=== PATIENT | female | born 1930 | race Caucasian/White ===

== ENCOUNTER 2017-08-25 09:08 | Emergency (ER) | payer MEDICARE ==
[2017-08-25] MEDS ORDERED: TRAMADOL HCL 50 MG TABLET PO ONE (09:17)
[2017-08-25] MEDS ORDERED: METOPROLOL SUCCINATE 25 MG TAB.SR.24H PO ONE (09:17)
[2017-08-25 09:47] LABS: PROTHROMBIN TIME 25.6 SEC (11.4-15.4)
[2017-08-25 09:55] LABS: ALANINE AMINOTRANSFERASE 30 U/L (9-52); ALBUMIN 4.2 g/dL (3.5-5.0); ALKALINE PHOSPHATASE 191 U/L (38-126); ANION GAP 13 (5-19); ASPARTATE AMINO TRANSFERASE 22 U/L (14-36); BILIRUBIN,DIRECT 0.5 mg/dL (0.0-0.4); BILIRUBIN,TOTAL 1.2 mg/dL (0.2-1.3); BLOOD UREA NITROGEN 21 mg/dL (7-20); CALCIUM 9.7 mg/dL (8.4-10.2); CARBON DIOXIDE 23 mmol/L (22-30); CHLORIDE 112 mmol/L (98-107); CREATININE RESULT 0.91 mg/dL (0.52-1.25); GLUCOSE 128 mg/dL (75-110); POTASSIUM 4.3 mmol/L (3.6-5.0); SODIUM 147.6 mmol/L (137-145); TOTAL PROTEIN 7.5 g/dL (6.3-8.2)
--- NOTE | 2017-08-25 10:09 | ER Document Report ---
ED General - General Chief Complaint: Fall Stated Complaint: FALL RIGHT BUTTOCK PAIN Time Seen by Provider: 08/25/17 09:15 Mode of Arrival: Medic Information source: Patient Notes: 87 yr old female hx of afib on metoprolol and coumadin presents with complaints of right buttock pain. Pt notes she fell a month ago was fine after, notes that the last few days the pain has since worsened. Pt was taking out hte garbage and twisted and has had mild pain initially that has since worsened. - HPI Onset: Other Onset/Duration: Intermittent Quality of pain: Achy Severity: Mild Pain Level: 1 Associated symptoms: Body/muscle aches Exacerbated by: Movement Relieved by: Denies Similar symptoms previously: No Recently seen / treated by doctor: No - Related Data Allergies/Adverse Reactions: Penicillins Allergy (Verified 08/25/17 09:36) Past Medical History - Social History Smoking Status: Never Smoker Cigarette use (# per day): No Chew tobacco use (# tins/day): No Smoking Education Provided: No Frequency of alcohol use: None Drug Abuse: None Family History: Reviewed & Not Pertinent - Past Medical History Cardiac Medical History: Reports: Hx Atrial Fibrillation - possibly, on coumadin , Hx Hypertension Pulmonary Medical History: Denies: Hx COPD Past Surgical History: Reports: Hx Cardiac Catheterization - Immunizations Hx Diphtheria, Pertussis, Tetanus Vaccination: Yes Hx Pneumococcal Vaccination: 08/17/12 Review of Systems - Review of Systems Notes: REVIEW OF SYSTEMS: CONSTITUTIONAL : Denies fever, chills, or sweats. Denies recent illness. EENT: Denies eye, ear, throat, or mouth pain or symptoms. Denies nasal or sinus congestion or discharge. Denies throat, tongue, or mouth swelling or difficulty swallowing. CARDIOVASCULAR: Denies chest pain. Denies palpitations or racing or irregular heart beat. Denies ankle edema. RESPIRATORY: Denies cough, cold, or chest congestion. Denies shortness of breath, difficulty breathing, or wheezing. GASTROINTESTINAL: Denies abdominal pain or distention. Denies nausea, vomiting , or diarrhea. Denies blood in vomitus, stools, or per rectum. Denies black, tarry stools. Denies constipation. GENITOURINARY: Denies difficulty urinating, painful urination, burning, frequency, blood in urine, or discharge. FEMALE GENITOURINARY: Denies vaginal bleeding, heavy or abnormal periods, irregular periods. Denies vaginal discharge or odor. MUSCULOSKELETAL:admits to right buttocks pain SKIN: Denies rash, lesions or sores. HEMATOLOGIC : Denies easy bruising or bleeding. LYMPHATIC: Denies swollen, enlarged glands. NEUROLOGICAL: Denies confusion or altered mental status. Denies passing out or loss of consciousness. Denies dizziness or lightheadedness. Denies headache. Denies weakness or paralysis or loss of use of either side. Denies problems with gait or speech. Denies sensory loss, numbness, or tingling. Denies seizures. PSYCHIATRIC: Denies anxiety or stress. Denies depression, suicidal ideation, or homicidal ideation. ALL OTHER SYSTEMS REVIEWED AND NEGATIVE. PHYSICAL EXAMINATION: GENERAL: Well-appearing, well-nourished and in no acute distress. HEAD: Atraumatic, normocephalic. EYES: Pupils equal round and reactive to light, extraocular movements intact, conjunctiva are normal. ENT: Nares patent, oropharynx clear without exudates. Moist mucous membranes. NECK: Normal range of motion, supple without lymphadenopathy LUNGS: Breath sounds clear to auscultation bilaterally and equal. No wheezes rales or rhonchi. HEART: afib rvr ABDOMEN: Soft, nontender, nondistended abdomen. No guarding, no rebound. No masses appreciated. Female : deferred Musculoskeletal: Normal range of motion, no pitting or edema. No cyanosis. no bruise noted, no point tenderness NEUROLOGICAL: Cranial nerves grossly intact. Normal speech, normal gait. Normal sensory, motor exams PSYCH: Normal mood, normal affect. SKIN: Warm, Dry, normal turgor, no rashes or lesions noted. Dictation was performed using Cartesian voice recognition software Physical Exam - Vital signs Vitals: Resp 25 H 08/25/17 09:13 Course - Re-evaluation Re-evalutation: 08/25/17 10:08 labs pending, overall patient looks quite well, she has not taken her metoprolol today. pt given dose and inr was checked pt given pain control., has no bony tenderness or cauda equina concerns 08/25/17 15:44 Patient noted complete resolution of her pain with tramadol, she was able to ambulate and was assisted by PCT. Patient's INR was checked and was reported to her. Otherwise she has no bony tenderness none cauda equina concerns and stable for discharge After performing a Medical Screening Examination, I estimate there is LOW risk for EXPANDING OR RUPTURED ABDOMINAL AORTIC ANEURYSM, CAUDA EQUINA SYNDROME, EPIDURAL MASS LESION, or HERNIATED DISK CAUSING SEVERE SPINAL STENOSIS, thus I consider the discharge disposition reasonable. I have reevaluated this patient multiple times and no significant life threatening changes are noted. The patient and I have discussed the diagnosis and risks, and we agree with discharging home and close follow-up. We also discussed returning to the Emergency Department immediately if new or worsening symptoms occur with the understanding that symptoms and presentations can change. We have discussed the symptoms which are most concerning (e.g., saddle anesthesia, urinary or bowel incontinence or retention, changing or worsening pain) that necessitate immediate return. - Vital Signs Vital signs: Temp Pulse Resp BP Pulse Ox 98.4 F 15 149/111 H 94 08/25/17 11:27 08/25/17 11:27 08/25/17 11:27 08/25/17 11:27 - Laboratory Result Diagrams: 08/25/17 09:25 08/25/17 09:25 Laboratory results interpreted by me: 08/25/17 08/25/17 08/25/17 09:25 09:25 09:25 RBC 5.36 H RDW 15.2 H PT 25.6 H Sodium 147.6 H Chloride 112 H BUN 21 H Est GFR (Non-Af Amer) 59 L Glucose 128 H Direct Bilirubin 0.5 H Alkaline Phosphatase 191 H - EKG Interpretation by Dc EKG shows normal: QRS Complexes, ST-T Waves Rate: Tachycardia Rhythm: A.Fib Discharge - Discharge Clinical Impression: Fall Qualifiers: Encounter type: initial encounter Qualified Code(s): W19.XXXA - Unspecified fall, initial encounter Hip pain Qualifiers: Laterality: right Qualified Code(s): M25.551 - Pain in right hip Condition: Stable Disposition: HOME, SELF-CARE Instructions: Contusion ([facility]) Prescriptions: Tramadol HCl 50 mg PO Q8 #20 tablet Referrals: SHANNAN MARTINES PA-C [Primary Care Provider] - Follow up tomorrow
[2017-08-25 10:11] LABS: ABSOLUTE BASOPHILS # (AUTO) 0.1 10^3/uL (0.0-0.2); ABSOLUTE EOSINOPHILS # (AUTO) 0.2 10^3/uL (0.0-0.6); ABSOLUTE LYMPHOCYTES (AUTO) 1.1 10^3/uL (0.5-4.7); ABSOLUTE MONOCYTES (AUTO) 0.7 10^3/uL (0.1-1.4); ABSOLUTE NEUT (AUTO) 5.8 10^3/uL (1.7-8.2); BASOPHILS % (AUTO) 1.3 % (0-2); EOSINOPHILS % (AUTO) 1.9 % (0-6); HEMATOCRIT 46.1 % (36.0-47.0); HEMOGLOBIN 15.5 g/dL (12.0-15.5); HGB HCT DIFFERENCE 0.4; MEAN CORPUSCULAR HEMOGLOBIN 28.8 pg (27.0-33.4); MEAN CORPUSCULAR HGB CONC 33.5 g/dL (32.0-36.0); MEAN CORPUSCULAR VOLUME 86 fl (80-97); MONOCYTES % (AUTO) 9.2 % (3-13); RED BLOOD COUNT 5.36 10^6/uL (3.72-5.28); RED CELL DISTRIBUTION WIDTH 15.2 % (11.5-14.0); SEGMENTED NEUTROPHILS % (AUTO) 73.6 % (42-78); WHITE BLOOD COUNT 7.8 10^3/uL (4.0-10.5)
[2017-08-25 11:34] VITALS: BP 149/111
--- NOTE | 2017-08-25 14:01 | EKG REPORT ---
SEVERITY:- ABNORMAL ECG - ATRIAL FIBRILLATION, V-RATE 75-139 PROBABLE INFERIOR INFARCT, AGE INDETERMINATE ANTERIOR INFARCT, AGE INDETERMINATE : Confirmed by: Donovan Nguyen MD 25-Aug-2017 14:00:12
== END 2017-08-25 11:34 | disposition home or self-care (01) ==
LOC: ER 09:08
DX: M25.551 Pain in right hip (principal); R00.0 Tachycardia, unspecified; I10 Essential (primary) hypertension; I48.91 Unspecified atrial fibrillation; Z79.899 Other long term (current) drug therapy; Z79.01 Long term (current) use of anticoagulants
CPT/HCPCS: 93005; 99284; 36415; 85025; 85610; 80053; 93010; A9270 ×2

== ENCOUNTER 2017-09-05 12:16 | Emergency (ER) | payer MEDICARE ==
--- NOTE | 2017-09-05 12:36 | ER Document Report ---
ED Medical Screen (RME) - General Chief Complaint: Bloody Stools Stated Complaint: BLOODY STOOL Time Seen by Provider: 09/05/17 12:24 Notes: 87-year-old female reporting 1 day history of melanotic stool. Mild right lower quadrant pain. Patient is on Coumadin. Had recent fall and has been seen numerous times over the last month for back pain. Does not know if she could have possibly injured something when she fell. Denies any chest pain. No vomiting. No fever. TRAVEL OUTSIDE OF THE [place] IN LAST 30 DAYS: No - Related Data Allergies/Adverse Reactions: Penicillins Allergy (Verified 09/05/17 12:20) Past Medical History - General Information source: Patient - Social History Chew tobacco use (# tins/day): No Frequency of alcohol use: Occasional Drug Abuse: None Lives with: Alone - Past Medical History Cardiac Medical History: Reports: Hx Atrial Fibrillation - possibly, on coumadin , Hx Hypertension Pulmonary Medical History: Denies: Hx COPD Renal/ Medical History: Denies: Hx Peritoneal Dialysis Past Surgical History: Reports: Hx Cardiac Catheterization - Immunizations Hx Diphtheria, Pertussis, Tetanus Vaccination: Yes Review of Systems - Review of Systems Constitutional: No symptoms reported EENT: No symptoms reported Cardiovascular: No symptoms reported Respiratory: No symptoms reported Gastrointestinal: Black stools, Rectal bleeding Genitourinary: No symptoms reported Musculoskeletal: See HPI, Other - Has had some right hip pain but had x-rays and were read as normal Skin: No symptoms reported Hematologic/Lymphatic: Easy bleeding, Easy bruising, Other - On warfarin Neurological/Psychological: No symptoms reported Physical Exam - Vital signs Vitals: Temp Pulse Resp BP Pulse Ox 98.0 F 86 20 147/109 H 95 09/05/17 12:20 09/05/17 12:20 09/05/17 12:20 09/05/17 12:20 09/05/17 12:20 Course - Re-evaluation Re-evalutation: 09/05/17 12:35 I have greeted and performed a rapid initial assessment of this patient. A comprehensive ED assessment and evaluation of the patient, analysis of test results and completion of the medical decision making process will be conducted by additional ED providers. Initial labs have been ordered. Blood banding and type and screen ordered. Cardiac monitoring and saline lock ordered. 09/05/17 12:35 - Vital Signs Vital signs: Temp Pulse Resp BP Pulse Ox 98.0 F 86 20 147/109 H 95 09/05/17 12:20 09/05/17 12:20 09/05/17 12:20 09/05/17 12:20 09/05/17 12:20
[2017-09-05 13:21] LABS: ABSOLUTE BASOPHILS # (AUTO) 0.1 10^3/uL (0.0-0.2); ABSOLUTE EOSINOPHILS # (AUTO) 0.1 10^3/uL (0.0-0.6); ABSOLUTE LYMPHOCYTES (AUTO) 1.1 10^3/uL (0.5-4.7); ABSOLUTE MONOCYTES (AUTO) 0.7 10^3/uL (0.1-1.4); ABSOLUTE NEUT (AUTO) 6.7 10^3/uL (1.7-8.2); BASOPHILS % (AUTO) 1.1 % (0-2); EOSINOPHILS % (AUTO) 1.5 % (0-6); HEMOGLOBIN 14.3 g/dL (12.0-15.5); HGB HCT DIFFERENCE 0.9; LYMPHOCYTES % (AUTO) 12.8 % (13-45); MEAN CORPUSCULAR HEMOGLOBIN 29.4 pg (27.0-33.4); MEAN CORPUSCULAR HGB CONC 34.1 g/dL (32.0-36.0); MEAN CORPUSCULAR VOLUME 86 fl (80-97); MONOCYTES % (AUTO) 8.5 % (3-13); RED BLOOD COUNT 4.87 10^6/uL (3.72-5.28); SEGMENTED NEUTROPHILS % (AUTO) 76.1 % (42-78); WHITE BLOOD COUNT 8.8 10^3/uL (4.0-10.5)
[2017-09-05 13:28] LABS: PROTHROMBIN TIME 37.1 SEC (11.4-15.4)
[2017-09-05 13:29] LABS: PARTIAL THROMBOPLASTIN TIME 56.2 SEC (23.5-35.8)
[2017-09-05 13:42] LABS: ALANINE AMINOTRANSFERASE 36 U/L (9-52); ALBUMIN 3.7 g/dL (3.5-5.0); ALKALINE PHOSPHATASE 169 U/L (38-126); ANION GAP 12 (5-19); ASPARTATE AMINO TRANSFERASE 19 U/L (14-36); BILIRUBIN,DIRECT 0.4 mg/dL (0.0-0.4); BILIRUBIN,TOTAL 1.3 mg/dL (0.2-1.3); BLOOD UREA NITROGEN 13 mg/dL (7-20); CALCIUM 9.2 mg/dL (8.4-10.2); CARBON DIOXIDE 26 mmol/L (22-30); CHLORIDE 108 mmol/L (98-107); GLUCOSE 119 mg/dL (75-110); POTASSIUM 4.3 mmol/L (3.6-5.0); SODIUM 145.5 mmol/L (137-145); TOTAL PROTEIN 6.3 g/dL (6.3-8.2)
--- NOTE | 2017-09-05 14:05 | ER Document Report ---
ED GI Bleed / Rectal Pain - General Chief Complaint: Bloody Stools Stated Complaint: BLOODY STOOL Time Seen by Provider: 09/05/17 12:24 Notes: Patient is here to be evaluated for rectal bleeding. She says that she got up and went to the bathroom at 5:30 AM today and felt as if she had a normal bowel movement. However, about an hour and a half later, she felt the need to have another bowel movement and this time she listed what was in the bowl and it was some red along with very black, thick bowel movement. She had another, third black thick bowel movement and then a fourth bowel movement about 11 AM before coming to the emergency department. She denies any abdominal pains. Patient has a history of atrial fibrillation and is currently on Coumadin. Does not take aspirin. Has taken some Tylenol for pains over the past couple of weeks. Patient denies any vomiting or diarrhea. Denies any history of gastrointestinal bleeding or disease. Denies any UTI or URI symptoms. Has not had any fever. Denies any abdominal surgeries. She fell over a dog a couple of months ago and has had some residual bilateral flank pain, and that is unchanged, but she has not had any new or different abdominal pains. Says she was seen here about a week and a half ago because she had pain in her foot and was told "nothing broken" and sent home with Golden. She subsequently followed up her primary care in [place] a week or more ago who gave her a pill to take for 5 days and stop it. She does not recall the name of that medicine. TRAVEL OUTSIDE OF THE [place] IN LAST 30 DAYS: No - Related Data Allergies/Adverse Reactions: Penicillins Allergy (Verified 09/05/17 12:20) Past Medical History - General Information source: Patient - Social History Smoking Status: Never Smoker Chew tobacco use (# tins/day): No Frequency of alcohol use: Occasional Drug Abuse: None Lives with: Alone Family History: Reviewed & Not Pertinent Patient has suicidal ideation: No Patient has homicidal ideation: No - Past Medical History Cardiac Medical History: Reports: Hx Atrial Fibrillation - possibly, on coumadin , Hx Hypercholesterolemia, Hx Hypertension Neurological Medical History: Denies: Hx Cerebrovascular Accident Endocrine Medical History: Denies: Hx Diabetes Mellitus Type 2 GI Medical History: Reports: None. Denies: Hx Cirrhosis, Hx Gastritis, Hx Gastroesophageal Reflux Disease, Hx Ulcerative Colitis Past Surgical History: Reports: Hx Cardiac Catheterization - Immunizations Hx Diphtheria, Pertussis, Tetanus Vaccination: Yes Hx Pneumococcal Vaccination: 08/17/12 Review of Systems - Review of Systems Notes: REVIEW OF SYSTEMS: CONSTITUTIONAL : Denies fever. Vital signs all normal. EENT: Denies eye, ear, nose or mouth or throat pain or other symptoms. CARDIOVASCULAR: Denies chest pain. RESPIRATORY: Denies cough, chest congestion, or shortness of breath. GASTROINTESTINAL: See HPI. Denies abdominal pain or nausea, vomiting, or diarrhea. Patient does point to her flank areas bilaterally and says that she has some discomfort there that has been present for 2 months since she fell over a dog landing on her buttocks. GENITOURINARY: Denies difficulty or painful urinating, urinary frequency, blood in urine. MUSCULOSKELETAL: Denies back or neck pain. Denies joint pain or swelling. SKIN: Denies rash or skin lesions. NEUROLOGICAL: Denies LOC or altered mental status. Denies headache. Denies sensory loss or motor deficits. ALL OTHER SYSTEMS REVIEWED AND NEGATIVE. Physical Exam - Vital signs Vitals: Temp Pulse Resp BP Pulse Ox 98.0 F 86 20 147/109 H 95 09/05/17 12:20 09/05/17 12:20 09/05/17 12:20 09/05/17 12:20 09/05/17 12:20 Interpretation: Normal, Hypertensive - Mild - Notes Notes: PHYSICAL EXAMINATION: GENERAL: Well-appearing, in no acute distress. HEAD: Atraumatic, normocephalic. EYES: Pupils equal round and reactive to light, extraocular movements intact. ENT: oropharynx clear without exudates. Moist mucous membranes. NECK: Normal range of motion, supple. LUNGS: Breath sounds clear and equal bilaterally. HEART: Regular rate and rhythm without murmurs. ABDOMEN: Soft, nontender. No guarding or rebound. Rectal exam red blood on the glove along with a very small amount of melanotic appearing blood. No lesions felt. No pain present. No hemorrhoids seen. BACK: No tenderness throughout entire back. EXTREMITIES: Normal range of motion without pain. NEUROLOGICAL: Normal speech, normal gait. Normal sensory, motor, and reflex exams. Awake, alert, and oriented x3. Cranial nerves normal. PSYCH: Normal mood, normal affect. SKIN: Warm, dry, no rashes. Course - Re-evaluation Re-evalutation: 09/05/17 18:47 We do not have gastroenterology fashion design professor at this emergency department and for this hospital today. I contacted [facility] and spoke with Dr. Mark who accepted the patient on behalf of Dr. Paz. Patient will be transported to [place] for further workup and care. - Vital Signs Vital signs: Temp Pulse Resp BP Pulse Ox 98.3 F 118 H 20 144/96 H 92 09/05/17 17:49 09/05/17 17:49 09/05/17 17:49 09/05/17 17:49 09/05/17 17:49 - Laboratory Result Diagrams: 09/05/17 13:08 09/05/17 13:08 Laboratory results interpreted by me: 09/05/17 09/05/17 09/05/17 13:08 13:08 13:08 RDW 15.0 H Plt Count 148 L Lymphocytes % 12.8 L PT 37.1 H APTT 56.2 H Sodium 145.5 H Chloride 108 H Est GFR (Non-Af Amer) 59 L Glucose 119 H Alkaline Phosphatase 169 H 09/05/17 18:47 Lab studies were all essentially unremarkable except the patient's INR is 3.55. - Diagnostic Test Radiology reviewed: Image reviewed, Reports reviewed - CT scan shows a large amount of diverticulosis of the descending and sigmoid colon, but no evidence of diverticulitis. - EKG Interpretation by Me Rhythm: A.Fib - Rate 108 Additional EKG results interpreted by me: 09/05/17 18:46 EKG shows atrial fibrillation with a slight tachycardia. What might be the appearance of old infarcts of the inferior and anteroseptal leads is noted. No acute changes present. Discharge - Discharge Clinical Impression: Rectal bleeding, Atrial fibrillation Condition: Stable Disposition: [facility] Referrals: SHNANAN MARTINES PA-C [Primary Care Provider] - Follow up as needed
--- NOTE | 2017-09-05 16:43 | RADIOLOGY REPORT (SQ) ---
EXAM DESCRIPTION: CT ABD/PELVIS WITH IV ORAL COMPLETED DATE/TIME: 09/05/2017 4:23 pm REASON FOR STUDY: Rectal bleeding COMPARISON: None. TECHNIQUE: CT scan of the abdomen and pelvis performed using helical scanning technique with dynamic intravenous contrast injection. Patient drank oral contrast. Images reviewed with lung, soft tissue , and bone windows. Reconstructed coronal and sagittal MPR images reviewed. Delayed images for evalua tion of the urinary system also acquired. All images stored on PACS. All CT scanners at this facility use dose modulation, iterative reconstruction, and/or weight based d osing when appropriate to reduce radiation dose to as low as reasonably achievable (ALARA). [facility]: Dose Right [facility]: CareDose [facility]: Dose Right [facility]: Teradose 4D [facility]: AlwaySupport CONTRAST TYPE AND DOSE: contrast/concentration: Isovue 370.00 mg/ml; Total Contrast Delivered: 68.0 ml; Total Saline Delivered: 65.0 ml RENAL FUNCTION: Creatinine 0.9 RADIATION DOSE: CT Rad equipment meets quality standard of care and radiation dose reduction techniq ues were employed. CTDIvol: 6.0 - 8.4 mGy. DLP: 758 mGy-cm.. LIMITATIONS: None. FINDINGS: LOWER CHEST: Pulmonary fibrosis at both lung bases left greater than right. No dense cons olidation worrisome for pneumonia LIVER: Normal size. No masses. No dilated ducts. SPLEEN: Normal size. No focal lesions. PANCREAS: No masses. No significant calcifications. No adjacent inflammation or peripancreatic fluid collections. Pancreatic duct not dilated. GALLBLADDER: Peripheral rim calcification along the gallbladder fundus. No gross calcified stones or pericholecystic fluid. ADRENAL GLANDS: No significant masses or asymmetry. RIGHT KIDNEY AND URETER: No solid masses. No significant calcifications. No hydronephrosis or hyd roureter. LEFT KIDNEY AND URETER: No solid masses. Benign-appearing 2 cm left upper pole simple cyst. In the left lower pole kidney, a 1.6 x 1 cm complex cyst with peripheral rim calcification is present, proba krzysztof benign. No significant collecting system stones. No hydronephrosis or hydroureter. AORTA AND VESSELS: No aneurysm. No dissection. Renal arteries, SMA, celiac without stenosis. RETROPERITONEUM: No retroperitoneal adenopathy, hemorrhage or masses. BOWEL AND PERITONEAL CAVITY: No masses or inflammatory changes. No free fluid or peritoneal masses. Patient drank oral contrast. No evidence of bowel obstruction. Heavy burden descending and sigmoid colon diverticuli without CT signs of acute diverticulitis APPENDIX: Normal. PELVIS: No mass. No free fluid. Normal bladder. Normal size female pelvic organs ABDOMINAL WALL: No masses. No hernias. BONES: No significant or acute findings. OTHER: No other significant finding. IMPRESSION: Heavy burden of descending and sigmoid colon diverticuli without CT signs of acute diver ticulitis. Porcelain gallbladder Probably benign complex cystic lesion left lower pole kidney. Simple cyst left upper pole kidney. TECHNICAL DOCUMENTATION: JOB ID: [id number] Quality ID # [id number]: Final reports with documentation of one or more dose reduction techniques (e.g., Au tomated exposure control, adjustment of the mA and/or kV according to patient size, use of iterative reconstruction technique) 2010 [employer]- All Rights Reserved
[2017-09-05 19:45] VITALS: BP 151/100
--- NOTE | 2017-09-06 14:40 | EKG REPORT ---
SEVERITY:- ABNORMAL ECG - ATRIAL FIBRILLATION, V-RATE 71-149 PROBABLE INFERIOR INFARCT, AGE INDETERMINATE CONSIDER ANTEROSEPTAL INFARCT LATERAL LEADS ARE ALSO INVOLVED : Confirmed by: Debra Lynn MD 06-Sep-2017 14:39:45
== END 2017-09-05 20:00 | disposition short-term general hospital (02) ==
LOC: ER 12:16
DX: K92.1 Melena (principal); I48.91 Unspecified atrial fibrillation; R00.0 Tachycardia, unspecified; Z88.0 Allergy status to penicillin; Z79.02 Long term (current) use of antithrombotics/antiplatelets
CPT/HCPCS: 36415; 74177; 80053; 82272; 85025; 85610; 85730; 86850; 86900; 86901; 93005; 93010; 99285

== ENCOUNTER 2017-11-27 03:54 | Emergency (ER) | payer MEDICARE ==
[2017-11-27 04:03] VITALS: BP 127/90
[2017-11-27] MEDS ORDERED: TRANEXAMIC ACID INJ/PF 1,000 MG/10 ML SDV IV PRN (04:47)
--- NOTE | 2017-11-27 05:06 | ER Document Report ---
ED General - General Chief Complaint: Bleeding Gums Stated Complaint: MOUTH BLEEDING Time Seen by Provider: 11/27/17 04:51 Notes: Patient is a pleasant 87-year-old female presents with complaint of some bleeding from her gums. She had surgery yesterday. She had removal of previous hardware related to root canal. She also had a repeat root canal performed. She then had a partial placed over this which she says is just there to help prevent swelling. Procedure surgeries performed by Dr. Wynne, oral surgeon. Patient says that she is on Coumadin because of a history of A. fib. Her Coumadin was stopped last Saturday and she has been receiving Lovenox since then. She said after surgery was she was still having some bleeding when she left the told her that should stop. She then went home and took her Lovenox shot at 2 PM as instructed. Patient says she has been bleeding all day and then into the night. Continue bleed tonight and therefore she came to the ER. She denies any dizziness or lightheadedness. No difficulty breathing. No fevers. No other complaints at this time. TRAVEL OUTSIDE OF THE [place] IN LAST 30 DAYS: No - Related Data Allergies/Adverse Reactions: Penicillins Allergy (Verified 09/05/17 12:20) Past Medical History - Social History Smoking Status: Never Smoker Frequency of alcohol use: None Drug Abuse: None Family History: Reviewed & Not Pertinent - Past Medical History Cardiac Medical History: Reports: Hx Atrial Fibrillation - possibly, on coumadin , Hx Hypercholesterolemia, Hx Hypertension Pulmonary Medical History: Denies: Hx COPD Neurological Medical History: Denies: Hx Cerebrovascular Accident Endocrine Medical History: Denies: Hx Diabetes Mellitus Type 2 Renal/ Medical History: Denies: Hx Peritoneal Dialysis GI Medical History: Denies: Hx Cirrhosis, Hx Gastritis, Hx Gastroesophageal Reflux Disease, Hx Ulcerative Colitis Past Surgical History: Reports: Hx Cardiac Catheterization - Immunizations Hx Diphtheria, Pertussis, Tetanus Vaccination: Yes Hx Pneumococcal Vaccination: 08/17/12 Review of Systems - Review of Systems Notes: My Normal Review Basic REVIEW OF SYSTEMS: CONSTITUTIONAL : Denies fever, chills, or sweats. Denies recent illness. EENT: Interval bleeding. CARDIOVASCULAR: Denies chest pain. RESPIRATORY: Denies cough, cold, or chest congestion. Denies shortness of breath, difficulty breathing, or wheezing. GASTROINTESTINAL: Denies abdominal pain. Denies nausea, vomiting, or diarrhea. Denies constipation. Last BM: MUSCULOSKELETAL: Denies neck or back pain or joint pain or swelling. SKIN: Denies rash or skin lesions. HEMATOLOGIC : Takes Coumadin due to history of A. fib. NEUROLOGICAL: Denies altered mental status or loss of consciousness. ALL OTHER SYSTEMS REVIEWED AND NEGATIVE. Physical Exam - Vital signs Vitals: Pulse Resp BP Pulse Ox 76 18 127/90 H 96 11/27/17 03:54 11/27/17 03:54 11/27/17 03:54 11/27/17 03:54 - Notes Notes: General Appearance: Well nourished, alert, cooperative, no acute distress, no obvious discomfort. Well appearing. Vitals: reviewed, See vital signs table. Head: no swelling or tenderness to the head Eyes: PERRL, EOMI, Conjuctiva clear Mouth: I removed a partial from the patient's lower gums. Patient is to surgical sites. They have all but stopped bleeding except for very slight slow venous ooze from the surgical site on the right side. No clots. Throat: No tonsillar inflammation, No airway obstruction Neck: No neck swelling. Extremities: good pulses in all extremities, no swelling or tenderness in the extremities, no edema. Skin: warm, dry, appropriate color, no rash Neuro: speech clear, oriented x 3, normal affect, responds appropriately to questions. Course - Re-evaluation Re-evalutation: 11/27/17 05:02 I soaked a sterile goals and 250 mg of tranexamic acid. I then applied a gauze over the patient's surgical wounds. I will recheck in 10-15 minutes. 11/27/17 05:47 Patient's bleeding has remains stopped. I have called and spoke with Dr. wynne, oral surgeon. He says it was actually as part of the did the surgery. He said to have the patient called office first thing this morning and they will fit her in to reexamine her and to make sure she does not have recurrent bleeding. I am just waiting for the patient's CBC to come back to make sure that she is not severely anemic or needs blood transfusion. 11/27/17 06:21 Patient's hemoglobin is normal. Her bleeding continues to be resolved. Patient will be discharged home. She is encouraged to call Dr. Wynne's office this morning to follow-up with them as he instructed. Dictation of this chart was performed using voice recognition software; therefore, there may be some unintended grammatical errors. - Vital Signs Vital signs: Temp Pulse Resp BP Pulse Ox 76 18 127/90 H 96 11/27/17 03:54 11/27/17 03:54 11/27/17 03:54 11/27/17 03:54 - Laboratory Result Diagrams: 11/27/17 05:00 Laboratory results interpreted by me: 11/27/17 05:00 RBC 5.35 H RDW 14.3 H Plt Count 124 L Discharge - Discharge Clinical Impression: Gingival bleeding Condition: Good Disposition: HOME, SELF-CARE Additional Instructions: Please call Dr. Wynne's office this am. He requests that you go to the office today for a close follow up appointment. Please ask your surgeon at your appointment if he wants you to continue the blood thinning shots. Please return to the ER if you have recurrent bleeding or feel unwell.
[2017-11-27 05:31] LABS: ABSOLUTE BASOPHILS # (AUTO) 0.1 10^3/uL (0.0-0.2); ABSOLUTE EOSINOPHILS # (AUTO) 0.1 10^3/uL (0.0-0.6); ABSOLUTE MONOCYTES (AUTO) 0.9 10^3/uL (0.1-1.4); ABSOLUTE NEUT (AUTO) 5.3 10^3/uL (1.7-8.2); EOSINOPHILS % (AUTO) 1.1 % (0-6); HEMATOCRIT 45.7 % (36.0-47.0); HEMOGLOBIN 15.1 g/dL (12.0-15.5); LYMPHOCYTES % (AUTO) 13.7 % (13-45); MEAN CORPUSCULAR HEMOGLOBIN 28.2 pg (27.0-33.4); MEAN CORPUSCULAR VOLUME 86 fl (80-97); MONOCYTES % (AUTO) 12.5 % (3-13); PLATELET COUNT 124 10^3/uL (150-450); RED BLOOD COUNT 5.35 10^6/uL (3.72-5.28); RED CELL DISTRIBUTION WIDTH 14.3 % (11.5-14.0); SEGMENTED NEUTROPHILS % (AUTO) 71.7 % (42-78); TOTAL CELLS COUNTED % (AUTO) 100 %; WHITE BLOOD COUNT 7.4 10^3/uL (4.0-10.5)
== END 2017-11-27 06:49 | disposition home or self-care (01) ==
LOC: ER 03:54
DX: K06.8 Other specified disorders of gingiva and edentulous alveolar ridge (principal); I48.91 Unspecified atrial fibrillation; Z79.01 Long term (current) use of anticoagulants; Z88.0 Allergy status to penicillin
CPT/HCPCS: 36415; 85025; 99283

== ENCOUNTER 2018-11-03 14:20 | Emergency (ER) | payer MEDICARE ==
--- NOTE | 2018-11-03 15:41 | ER Document Report ---
ED Medical Screen (RME) - General Chief Complaint: Cough Stated Complaint: COUGH AND SORE THROAT Time Seen by Provider: 11/03/18 15:33 Mode of Arrival: Ambulatory Information source: Patient Notes: This is an 88-year-old female who presents to the emergency room with 1 day history of cough, sore throat, chills. She denies any headache. She denies any neck stiffness. She denies any bleeding. She is on warfarin, metoprolol and atorvastatin. She is allergic to penicillin. Past medical history: Atrial fibrillation Primary CARE physician: Héctor TRAVEL OUTSIDE OF THE [place] IN LAST 30 DAYS: No - HPI Onset: Yesterday Onset/Duration: Gradual Quality of pain: No pain Severity: None Pain Level: Denies Associated Symptoms: Chills, Cough (nonproductive), Sore throat. denies: Fever Exacerbated by: Denies Relieved by: Denies Similar symptoms previously: No Recently seen / treated by doctor: No - Related Data Smoking: Non-smoker Frequency of alcohol use: None Drug Abuse: None Allergies/Adverse Reactions: Penicillins Allergy (Verified 11/03/18 15:27) Past Medical History - General Information source: Patient - Social History Cigarette use (# per day): No Chew tobacco use (# tins/day): No Frequency of alcohol use: None Drug Abuse: None Lives with: Alone Family history: None - Past Medical History Cardiac Medical History: Reports: Hx Atrial Fibrillation - possibly, on coumadin, Hx Hypercholesterolemia, Hx Hypertension Pulmonary Medical History: Reports: Hx Bronchitis Denies: Hx COPD Neurological Medical History: Denies: Hx Cerebrovascular Accident Endocrine Medical History: Denies: Hx Diabetes Mellitus Type 2 Renal/ Medical History: Denies: Hx Peritoneal Dialysis GI Medical History: Reports: Hx Ulcer. Denies: Hx Cirrhosis, Hx Gastritis, Hx Gastroesophageal Reflux Disease, Hx Ulcerative Colitis Past Surgical History: Reports: Hx Cardiac Catheterization - Immunizations Hx Diphtheria, Pertussis, Tetanus Vaccination: Yes Review of Systems - Review of Systems Constitutional: denies: Chills, Fever EENT: Other - Sore throat Cardiovascular: denies: Chest pain, Palpitations, Heart racing Respiratory: Cough, Sputum. denies: Short of breath, Wheezing Gastrointestinal: denies: Abdominal pain, Diarrhea, Vomiting Genitourinary: No symptoms reported Female Genitourinary: No symptoms reported Musculoskeletal: No symptoms reported Skin: No symptoms reported Hematologic/Lymphatic: No symptoms reported Neurological/Psychological: No symptoms reported Physical Exam - Vital signs Vitals: Temp Pulse Resp BP Pulse Ox 98.9 F 95 14 138/63 H 92 11/03/18 14:36 11/03/18 14:36 11/03/18 14:36 11/03/18 14:36 11/03/18 14:36 Notes: Physical exam: GENERAL: 88-year-old female, alert and oriented x3, no acute distress HEAD: Atraumatic, normocephalic. EYES: Pupils equal round and reactive to light, extraocular movements intact, sclera anicteric, conjunctiva are normal. ENT: TMs normal, nares patent, oropharynx erythematous without exudates, swelling, fluctuance or uvula deviation. Moist mucous membranes. NECK: Normal range of motion, supple without obvious mass or JVD. LUNGS: Breath sounds clear to auscultation bilaterally and equal. No wheezes rales or rhonchi. HEART: Regular rate and rhythm without murmurs, rubs or gallops. ABDOMEN: Soft, normoactive bowel sounds. No tenderness to palpation. No guarding, no rebound. No masses appreciated. EXTREMITIES: Normal range of motion, no pitting or edema. No clubbing or cyanosis. NEUROLOGICAL: Cranial nerves II through XII grossly intact. Normal speech, moving all extremities. PSYCH: Normal mood, normal affect. SKIN: Warm, Dry, normal turgor, no rashes or lesions noted. Course - Vital Signs Vital signs: Temp Pulse Resp BP Pulse Ox 99.0 F 78 18 116/55 L 94 11/03/18 17:00 11/03/18 17:00 11/03/18 17:00 11/03/18 17:00 11/03/18 17:00 - Diagnostic Test Radiology reviewed: Image reviewed, Reports reviewed - Chest x-ray: Cannot rule out retrocardiac infiltrate Doctor's Discharge - Discharge Clinical Impression: Early pneumonia Condition: Stable Disposition: HOME, SELF-CARE Instructions: Pneumonia ([facility]) Additional Instructions: Your x-ray showed some possible early infiltrate on the left. Therefore, we will give you an antibiotic for possible pneumonia. Its important to follow-up with your primary care doctor because this medicine can increase the Coumadin level (will [employer] would increase your chances of bleeding). Thus, the Coumadin level needs to be followed closely. Follow-up with your primary care doctor tomorrow. Bring a copy of today's x-ray and serology test with you when you go. Both the strep test and the flu test were negative today. Turn to the emergency room for worsening shortness of breath or any concerns or getting worse. Prescriptions: Azithromycin [Zithromax 250 mg Tablet] 250 mg PO ASDIR PRN #6 tablet PRN Reason:
[2018-11-03 16:21] LABS: A TYPE INFLUENZA AG NEGATIVE (NEGATIVE); B INFLUENZA AG NEGATIVE (NEGATIVE)
--- NOTE | 2018-11-03 16:30 | RADIOLOGY REPORT (SQ) ---
EXAM DESCRIPTION: CHEST 2 VIEWS COMPLETED DATE/TIME: 11/03/2018 4:22 pm REASON FOR STUDY: cough COMPARISON: 08/14/2012 EXAM PARAMETERS: NUMBER OF VIEWS: two views TECHNIQUE: Digital Frontal and Lateral radiographic views of the chest acquired. RADIATION DOSE: NA LIMITATIONS: none FINDINGS: LUNGS AND PLEURA: There appears to be mild retrocardiac opacification on the left. Left h emidiaphragm remains well-defined. MEDIASTINUM AND HILAR STRUCTURES: No masses or contour abnormalities. HEART AND VASCULAR STRUCTURES: Heart normal size. No evidence for failure. BONES: No acute findings. HARDWARE: None in the chest. OTHER: No other significant finding. IMPRESSION: Cannot exclude limited retrocardiac infiltrate on the left. TECHNICAL DOCUMENTATION: JOB ID: [id number] [employer]- All Rights Reserved Reading location - IP/workstation name: [email or web address]
[2018-11-03 17:01] VITALS: BP 116/55
== END 2018-11-03 17:18 | disposition home or self-care (01) ==
LOC: ER 14:20
DX: J18.9 Pneumonia, unspecified organism (principal); J02.9 Acute pharyngitis, unspecified; R68.83 Chills (without fever); E78.00 Pure hypercholesterolemia, unspecified; I10 Essential (primary) hypertension; I48.91 Unspecified atrial fibrillation; Z79.02 Long term (current) use of antithrombotics/antiplatelets
CPT/HCPCS: 71046; 87070; 87804; 87880; 99283